=== PATIENT | female | born 1950 | race Caucasian/White ===

== ENCOUNTER 2024-11-21 19:31 | Emergency (ER) | payer MEDICARE, BC, SELFPAY ==
[2024-11-21 19:32] VITALS: BP 157/101; PULSE 75; RESP 18; TEMP 36.1; O2SAT 100
--- NOTE | 2024-11-21 19:34 | ED.GENADUL_ITS ---
Discharge Plan Disposition Patient Disposition: Home Condition: Improving Discharge Details Clinical Impression: Kidney stone on left side, Renal colic on left side ED Provider: Haider Donald Discharge Instructions Instructions: Kidney Stone, Adult ED, Kidney stone diet Discharge Data Discharge Physician: Haider Donald HPI General Date/Time Provider Initiated Documentation: 11/21/24 19:34 . HPI Narrative: Patient presents emergency department complaining of nausea and vomiting after she ate some [place] and fish sticks today. She states that she did not meditation retreat here in [place] and has been treated for UTI by her doctor for the last few days. States that she is not able to take anything down also complains of lower and left lower quadrant abdominal pain. Denies any diarrhea Related Data Allergies Allergy/AdvReac Type Severity Reaction Status Date / Time amoxicillin Allergy Other (See Verified 11/21/24 20:10 Comment) clavulanic acid (From Allergy Other (See Verified 11/21/24 20:10 Augmentin) Comment) latex Allergy Other (See Verified 11/21/24 20:10 Comment) mupirocin (From Bactroban) Allergy Other (See Verified 11/21/24 20:10 Comment) neomycin Allergy Other (See Verified 11/21/24 20:10 Comment) Penicillins Allergy Other (See Verified 11/21/24 20:10 Comment) perfume Allergy Other (See Verified 11/21/24 20:10 Comment) Sulfa (Sulfonamide Allergy Other (See Verified 11/21/24 20:10 Antibiotics) Comment) Review of Systems Narrative: Review of Systems: Constitutional: No fevers, chills, sweats Eye: No recent visual problems ENT: No ear pain, nasal congestion, sore throat Respiratory: No shortness of breath, cough Cardiovascular: No Chest pain, palpitations, syncope Gastrointestinal: No , diarrhea Genitourinary: No hematuria Geovanny/Lymph: Negative for bruising tendency, swollen lymph glands Endocrine: Negative for excessive thirst, excessive hunger Musculoskeletal: No back pain, neck pain, joint pain, muscle pain, decreased range of motion Integumentary: No rash, pruritus, abrasions Neurologic: Alert & oriented X 4 Psychiatric: No anxiety, depression Exam Narrative Exam Narrative: Exam; vitals signs as reported above normal Constitutional; In no acute distress, afebrile General: cooperative, healthy appearing, comfortable and no acute distress HEENT: Head: normal to inspection, no palpable skull fracture and normocephalic atraumatic Eyes: : appearance normal, both eyes and all related structures EOM intact bilaterally Pupils: PERRL : conjunctiva normal Direct ophthalmoscopy: normal light reflex, normal conjunctiva, normal visual acuity Ears: Normal TM, normal external canal Nose: normal no rhinorreha Neck no JVD, supple non tender Neck: normal visual inspection, full ROM and no lymphadenopathy Chest: normal inspection of the chest Respiratory : normal respiratory effort and able to speak in complete sentences no wheezing no rales Cardio Rate: regular rate, rhythm: regular rhythm normal heart sounds S1 and S2 no murmurs, gallops, or rubs GI : normal to inspection, normal bowel sounds, soft, non tender, non distended, no organomegaly Back/Spine/ no CVA tenderness Thoracic/Lumbar Spine: no tenderness or deformities Skin no rashes or lesions Neuro: patient alert oriented x 4 and no meningeal signs, Cranial Nerves: CN's II-XI intact bilaterally, Cognition: normal cognition, Speech: speech normal, Gait: normal gait, Depp tendon reflexes normal 2+ muscle strength 5/5 bilaterally Extremities, no edema, full range of motion, normal strength Medical Decision Making MDM: Summary: Patient presented to the emergency department complaining of left lower quadrant pain and back pain associate with nausea and vomiting which she thought it was related to eating fish in September or early this morning. Denies any diarrhea. Labs are unremarkable except for microscopic hematuria in the urinalysis she received analgesics and Zofran with complete resolution of her symptoms she also received IV fluids and the CAT scan of the abdomen and pelvis shows a 3 mm stone in the left UVJ causing hydronephrosis. Data Review Analysis All the data on this patient was reviewed by me including laboratory and imaging studies as well as bedside studies performed by me Independent review of Studies Imaging CT scan shows a 3 mm stone in the left UVJ Lab: Labs are unremarkable except for hematuria Risk Stratification: Patient will with a passed kidney stone or renal colic will be discharged home she has been pain-free Differential Diagnosis: 1. Renal colic 2. Kidney stone 3. Acute diverticulitis 4. Food poisoning 5. Consultants: Shared disposition: Patient send disposition will follow accordingly Impression: PFSH All Active Problems (Updated 11/21/24 @ 21:55 by Haider Donald MD) Renal colic on left side (Acute) Kidney stone on left side (Acute) Social History Smoking risk assessment performed?: No
[2024-11-21 19:43] VITALS: BP 157/101; PULSE 75; RESP 18; TEMP 36.1; O2SAT 100
[2024-11-21 20:18] LABS: Abs Immature Grans 0.06 10^3/uL (0.0-0.06); HCT 37.6 % (36.0-46.0); HGB 12.5 g/dL (11.2-15.7); Immature Grans % 0.7 %; MCH 31.0 pg (27.0-33.0); MCHC 33.2 % (32.0-36.0); MCV 93 fL (80-95); MPV 10.6 fL (8.0-11.0); Platelet Count 181 10^3/uL (130-400); RBC 4.03 10^6/uL (3.93-5.22); RDW 13.3 % (11.7-14.6); RDW-SD 46.5 fL; WBC 8.58 10^3/uL (4.4-10.8)
[2024-11-21] MEDS: Normal Saline 1,000 ML 1000 ML IV (20:20)
[2024-11-21] MEDS: Ondansetron 4 MG/2 ML VIAL IVP (20:21)
[2024-11-21] MEDS: MORPHine 4 MG/ML SYR IVP (20:22)
[2024-11-21 20:33] LABS: ALT 26 U/L (14-59); AST 26 U/L (15-37); Albumin 4.3 g/dL (3.4-5.0); Alkaline Phosphatase 80 U/L (46-116); Anion Gap 12.2 mmol/L (3-11); BUN 20 mg/dL (7-18); Bilirubin, Total 0.9 mg/dL (0.2-1.0); CO2 25.8 mmol/L (21.0-32.0); Calcium 9.4 mg/dL (8.5-10.1); Chloride 104 mmol/L (98-107); Estimated GFR 42.62 (mL/min/1.73m2); Glucose 130 mg/dL (74-106); Magnesium 2.2 mg/dL (1.8-2.4); Potassium 3.2 mmol/L (3.5-5.1); Sodium 142 mmol/L (136-145); Total Protein 7.2 g/dL (6.4-8.2)
[2024-11-21] MEDS: Normal Saline - Diluent 50 ML VIAL IJ (21:01)
[2024-11-21] MEDS: Omnipaque 350 MG/ML 100 ML BTL 75 ML IJ (21:01)
--- NOTE | 2024-11-21 21:03 | DI.CT_ITS ---
Exam(s) CT ABDOMEN PELVIS W EXAM: CT ABDOMEN PELVIS W CLINICAL HISTORY: LLQ abdominal pain. TECHNIQUE: Imaging Protocol: Axial computed tomography images with coronal and sagittal reformatted images were created and reviewed CONTRAST MATERIAL: Intravenous: Omnipaque-350 100cc Oral: None COMPARISON: No exams were available for comparison FINDINGS: VISUALIZED LUNG BASES: No nodules nor pleural effusions evident. ABDOMEN: LIVER: There are no focal hepatic lesions evident. No dilated intrahepatic ducts. GALLBLADDER/BILIARY: No obvious gallbladder pathology. CBD is not dilated. PANCREAS: No evidence of pancreatic mass nor dilatation of the pancreatic duct. SPLEEN: Spleen is not enlarged. No obvious intrasplenic lesions. Splenic and portal veins are patent. ADRENALS: There are no significant adrenal masses. KIDNEYS:Right kidney unremarkable. There is some IV contrast within the collecting system versus small nonobstructive calculi in the right kidney. Right ureter is not dilated. There is abundant perinephric fluid around the left kidney and mild hydronephrosis-ipsilateral hydroureter. There is small 2-3 mm calculus at the intramural aspect of the left ureterovesical junction. Some edema is noted in the wall of the bladder at this level.. URINARY BLADDER: Left UVJ level small calculus. Possible similar finding on the right side. There are no free floating radiopaque calculi in the urinary bladder. The bladder is moderately distended. ABDOMINAL AORTA: Abdominal aorta is tortuous but upper normal diameter. Same is true of the iliac arteries. LYMPH NODES:There is no retroperitoneal nor paraaortic adenopathy. ABDOMINAL WALL: No evidence of significant anterior abdominal wall nor inguinal hernia. GI: Moderate size hiatal hernia noted. Some enhancement the GE junction luminal level noted. PELVIS: GI: No evidence of appendicitis.No evidence of sigmoid diverticulitis. LYMPH NODES: There is no intrapelvic nor inguinal adenopathy. REPRODUCTIVE: Left-sided calcified uterine fibroid. No abnormal adnexal masses. OSSEOUS: No fracture. Chronic multilevel degenerative disc disease. No listhesis. No significant osseous lesions. IMPRESSION: 1. The main acute finding here is abundant edema/streaking around the left kidney and mild left-sided hydronephrosis and hydroureter which appears to be related to a small radiopaque 3 mm calculus at the intramural aspect of the left ureterovesical junction. There is some edema versus is ureterocele at this level. There are no remaining radiopaque calculi in the left kidney. In the opposite-right kidney there are few small nonobstructive calculi noted. However, there also appears to be a 2-3 millimeter calculus at the right ureterovesical junction. There is no streaking around the right kidney. The urinary bladder is moderately distended 2. No evidence of obvious appendicitis nor diverticulitis. 3. Moderate size hiatal hernia. There is some mural enhancement at this level. Recommend direct visualization-endoscopy. Report called by myself to ER provider 11/21/2024 at 9:28 p.m. RADIATION DOSE DELIVERED: 328.13mGy.cm Total DLP DATA REPOSITORY: All CT scans at this facility are submitted to the National Radiology Data Registry (NRDR) Dose Index Registry (DIR) with the [employer] (A[employer]). RADIATION OPTIMIZATION: All CT scans at this facility use at least one of these dose optimization techniques: automated exposure control; mA and/or kV adjustment per patient size (includes targeted exams where dose is matched to clinical indication); or iterative reconstruction.
[2024-11-21 21:33] LABS: Glucose Negative (Negative)
[2024-11-21 21:52] LABS: C & S Indicated? No; WBC 0-2 HPF (0-5)
[2024-11-21 22:27] VITALS: BP 144/95; PULSE 79; RESP 18; O2SAT 98
== END 2024-11-21 22:26 | disposition home or self-care (01) ==
LOC: ER 22:35
PROVIDERS: Emergency Provider Emergency Medicine Emergency Medical Services
DX: N13.2 Hydronephrosis with renal and ureteral calculous obstruction (principal); N23 Unspecified renal colic
CPT/HCPCS: 80053; 96374; 96375; 99285; 74177; 81003; 81015; 83735; 85025; 99284; J2270; J2405; J3490